=== PATIENT | female | born 1995 | race African-American/Black ===

== ENCOUNTER 2017-11-09 09:43 | Emergency (ER) | payer BC, MEDICAID ==
[~2017-11-09] VITALS: Ht 149.9 cm; Wt 45.0 kg
[2017-11-09] MEDS ORDERED: birth control (10:02)
[2017-11-09 11:53] LABS: CLARITY URINE TURBID (CLEAR); COLOR URINE YELLOW (YELLOW); KETONES URINE NEGATIVE (NEGATIVE); LEUKOCYTE ESTERASE URINE NEGATIVE (NEGATIVE); NITRITE URINE NEGATIVE (NEGATIVE); OCCULT BLOOD URINE NEGATIVE (NEGATIVE); PH URINE 8.5 (4.5-8.0); PROTEIN URINE NEGATIVE (NEGATIVE); SPECIFIC GRAVITY URINE 1.017 (1.005-1.030); UROBILINOGEN URINE 0.2 E.U./dL (0.2-1.0)
[2017-11-09 16:17] VITALS: BP 121/58
[2017-11-10 09:16] LABS: UCG SCREEN NEGATIVE
== END 2017-11-09 16:53 | disposition home or self-care (01) ==
LOC: ER 09:50
DX: Z87.440 Personal history of urinary (tract) infections (principal); R03.0 Elevated blood-pressure reading, without diagnosis of hypertension; F17.210 Nicotine dependence, cigarettes, uncomplicated
CPT/HCPCS: 81003; 81025; 87086; 99284

== ENCOUNTER 2018-10-17 10:22 | Emergency (ER) | payer BC ==
[~2018-10-17] VITALS: Ht 149.9 cm; Wt 49.0 kg
[~2018-10-17 10:22] MED LIST: birth control
[2018-10-17] MEDS ORDERED: ACETAMINOPHEN 325MG TABLET PO ONE (16:30)
[2018-10-17 19:00] VITALS: BP 104/60
== END 2018-10-17 19:28 | disposition home or self-care (01) ==
LOC: ER 10:22
DX: M25.562 Pain in left knee (principal); F12.10 Cannabis abuse, uncomplicated; V49.49XA Driver injured in collision with other motor vehicles in traffic accident, initial encounter; Y93.89 Activity, other specified; Y92.89 Other specified places as the place of occurrence of the external cause; Y99.8 Other external cause status; Z87.440 Personal history of urinary (tract) infections
CPT/HCPCS: 71045; 73560; 73590; 81025; 93005; 99283

== ENCOUNTER 2019-01-15 21:50 | Emergency (ER) | payer BC ==
[~2019-01-15] VITALS: Ht 149.9 cm; Wt 48.0 kg
[2019-01-15 23:51] LABS: CLARITY URINE CLEAR (CLEAR); COLOR URINE YELLOW (YELLOW); KETONES URINE NEGATIVE (NEGATIVE); LEUKOCYTE ESTERASE URINE TRACE (NEGATIVE); NITRITE URINE NEGATIVE (NEGATIVE); OCCULT BLOOD URINE NEGATIVE (NEGATIVE); PH URINE 6.5 (4.5-8.0); PROTEIN URINE NEGATIVE (NEGATIVE); SPECIFIC GRAVITY URINE 1.017 (1.005-1.030); UROBILINOGEN URINE 0.2 E.U./dL (0.2-1.0)
[2019-01-16 01:55] VITALS: BP 125/79
== END 2019-01-16 01:56 | disposition home or self-care (01) ==
LOC: ER 21:50
DX: N89.8 Other specified noninflammatory disorders of vagina (principal); R10.9 Unspecified abdominal pain; F12.10 Cannabis abuse, uncomplicated
CPT/HCPCS: 81003; 81025; 87210; 99283; Z7610

== ENCOUNTER 2022-04-13 11:34 | Emergency (ER) | payer BC, MEDICAID ==
[~2022-04-13] VITALS: Ht 149.9 cm; Wt 52.0 kg
[2022-04-13 11:58] VITALS: BP 120/75
== END 2022-04-13 17:09 | disposition home or self-care (01) ==
LOC: ER 12:50
DX: N60.01 Solitary cyst of right breast (principal); N64.52 Nipple discharge; F12.10 Cannabis abuse, uncomplicated
CPT/HCPCS: 76641; 81025; 99284

== ENCOUNTER 2024-07-14 15:07 | Emergency (ER) | payer MEDICAID, OTHER ==
[~2024-07-14] VITALS: Ht 152.4 cm; Wt 53.9 kg
[2024-07-14 15:14] VITALS: O2SAT 98
[2024-07-14 15:36] VITALS: BP 101/64; PULSE 107; RESP 18; TEMP 100.9; O2SAT 98
== END 2024-07-14 18:05 | disposition home or self-care (01) ==
LOC: ER 15:07
DX: B34.9 Viral infection, unspecified (principal); F12.10 Cannabis abuse, uncomplicated
CPT/HCPCS: 99281

== ENCOUNTER 2025-06-20 14:52 | Emergency (ER) | payer MEDICAID, OTHER ==
[~2025-06-20] VITALS: Ht 160 cm; Wt 66.0 kg
[~2025-06-20 14:52] MED LIST changes: +LEVO-65 MT
[2025-06-20 15:02] VITALS: O2SAT 97
[2025-06-20 15:23] LABS: BASOPHILS % 0.9 % (0.0-2.0); EOSINOPHILS % 1.5 % (0.0-5.0); HEMATOCRIT. 38.2 % (36.0-48.0); HEMOGLOBIN. 12.0 g/dL (12.0-16.0); LYMPHOCYTES % 31.8 % (20.0-50.0); MEAN PLATELET VOLUME 8.2 fl (7.4-10.4); MONOCYTES % 8.8 % (2.0-8.0); NEUTROPHILS % 57.0 % (40.0-76.0); PLATELET 259 x1000/uL (130-400); RED BLOOD CELL COUNT 5.20 mill/uL (4.2-5.4); RED CELL DISTRIBUTION WIDTH 14.8 % (11.6-14.6)
[2025-06-20 15:35] LABS: CREATININE 0.8 mg/dL (0.6-1.0); UREA NITROGEN BLOOD 8 mg/dL (9-23)
[2025-06-20 16:07] LABS: CLARITY URINE CLEAR (CLEAR); COLOR URINE YELLOW (YELLOW); GLUCOSE URINE NEGATIVE (NEGATIVE); KETONES URINE NEGATIVE (NEGATIVE); LEUKOCYTE ESTERASE URINE NEGATIVE (NEGATIVE); NITRITE URINE NEGATIVE (NEGATIVE); OCCULT BLOOD URINE 3+ (NEGATIVE); PH URINE 6.5 (4.5-8.0); PROTEIN URINE NEGATIVE (NEGATIVE); SPECIFIC GRAVITY URINE 1.014 (1.005-1.030); UROBILINOGEN URINE 0.2 E.U./dL (0.2-1.0)
[2025-06-20 16:48] LABS: WBC URINE 0-2 /hpf (0-2)
[2025-06-20 16:49] LABS: BACTERIA URINE TRACE; SQUAMOUS EPITHELIAL CELL URINE FEW /lpf (RARE/1+)
[2025-06-20 17:05] VITALS: BP 102/72; PULSE 77; RESP 16; TEMP 36.7; O2SAT 100
== END 2025-06-20 17:07 | disposition home or self-care (01) ==
LOC: ER 15:17
DX: N93.9 Abnormal uterine and vaginal bleeding, unspecified (principal); Z79.3 Long term (current) use of hormonal contraceptives; Z79.899 Other long term (current) drug therapy
CPT/HCPCS: 36415; 80048; 81003; 81025; 85025; 99291